=== PATIENT | female | born 1980 | race Caucasian/White ===

== ENCOUNTER 2025-04-08 21:08 | Emergency (ER) | payer OTHER, SELFPAY ==
--- NOTE | ~2025-04-08 | CT_ITS ---
EXAMINATION: CT cervical spine wo con DATE: 04/08/2025 21:49 INDICATION: Head injury. TECHNIQUE: Computed tomography (CT) of the cervical spine was performed without intravenous contrast. The dose-length product was 580 mGy-cm. COMPARISON: None FINDINGS: There is reversal of normal cervical lordosis. Vertebral body heights are maintained. No significant disc narrowing. Craniovertebral junction is normal. Odontoid process is normal. No evidence of facet. No fracture or traumatic malalignment. IMPRESSION: 1. No acute abnormality of the cervical spine. Reviewed, dictated and finalized at location O.
--- NOTE | ~2025-04-08 | CT_ITS ---
EXAMINATION: CT BRAIN W/O DATE: 04/08/2025 21:48 INDICATION: Head injury. TECHNIQUE: Computed tomography (CT) of the head was performed without intravenous contrast. The dose-length product was 605.33 mGy-cm. Automated exposure control and iterative reconstruction technique were employed. COMPARISON: No prior studies for comparison. FINDINGS: Normal brain parenchymal volume for age. Normal cotto-white differentiation. No acute intracranial hemorrhage, infarction, mass or mass effect. No ventriculomegaly or midline shift. Midline sagittal images demonstrate a normal corpus callosum, craniovertebral junction and sella turcica. Basilar cisterns are patent. Paranasal sinuses and mastoids are pneumatized. No depressed skull fractures. There is a left parietal scalp hematoma. IMPRESSION: 1. No acute intracranial abnormality. Reviewed, dictated and finalized at location O.
[2025-04-08 21:07] VITALS: BP 145/97; PULSE 106; RESP 28; TEMP 36.6; O2SAT 95
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
[2025-04-08] MEDS: Please add drug allergy info to patient profile. 1 EACH XX (22:11)
[2025-04-08] MEDS: TETANUS,DIPHTHERIA,AC PERTUSSIS ADULT (0.5 ML) BOOSTRIX IM (22:12)
[2025-04-08 23:07] VITALS: PULSE 72; RESP 18; O2SAT 100
== END 2025-04-08 23:15 | disposition home or self-care (01) ==
LOC: ANHED 22:53
PROVIDERS: Emergency Provider Physician Assistant
DX: S01.01XA Laceration without foreign body of scalp, initial encounter (principal); Z23 Encounter for immunization; V89.2XXA Person injured in unspecified motor-vehicle accident, traffic, initial encounter
CPT/HCPCS: 12002; 70450; 72125; 90471; 90715; 99284